=== PATIENT | male | born 1955 | race American Indian/Alaskan Native ===

== ENCOUNTER 2018-09-30 11:49 | Emergency (ER) | payer BC ==
[2018-09-30 12:00] VITALS: BP 138/76
--- NOTE | 2018-09-30 12:00 | Emergency Department Report ---
Blank Doc - Documentation Documentation: This is a 63-year-old male that presents with right elbow pain. This initial assessment/diagnostic orders/clinical plan/treatment(s) is/are subject to change based on patient's health status, clinical progression and re- assessment by fellow clinical providers in the ED. Further treatment and workup at subsequent clinical providers discretion. Patient/guardians urged not to elope from the ED as their condition may be serious if not clinically assessed and managed. Initial orders include: 1- Patient sent to [facility] for further evaluation and treatment 2- xray
--- NOTE | 2018-09-30 12:30 | XRay Report ---
RIGHT ELBOW 3 VIEWS INDICATION / CLINICAL INFORMATION: Right elbow pain without known injury. COMPARISON: None available. FINDINGS: BONES / JOINT(S): There is a large spur at the insertion of the triceps tendon on the olecranon proce ss of the ulna. There is also moderate spurring involving both distal humeral epicondyles and the cor onoid process of the ulna. There are also milder degenerative changes involving the remainder of the elbow joint. I see no evidence of fracture, dislocation, destructive lesion or joint effusion. SOFT TISSUES: No significant abnormality. ADDITIONAL FINDINGS: None. IMPRESSION: Degenerative changes without acute abnormality. Signer Name: Bright Starks MD Signed: 09/30/2018 12:25 PM Workstation Name: [id number]
[2018-09-30] MEDS ORDERED: IBUPROFEN PO ONE (13:29)
[2018-09-30] MEDS ORDERED: DELTASONE PO ONE (13:29)
--- NOTE | 2018-09-30 13:52 | Emergency Department Report ---
Upper Extremity - [facility] Chief Complaint: Extremity Problem,Nontraumatic Stated Complaint: RT ARM PAIN Time Seen by Provider: 09/30/18 11:59 Upper Extremity: Right Elbow Occurred When: >5 Days Severity: moderate Symptoms: Yes Pain with Movement, No Deformity, No Limited Range of Movement, No Numbness, No Weakness, No Swelling, No Bruising/Ecchymosis, No Laceration or Abrasion Other History: 63-year-old male comes in for right elbow pain and upper arm pain. 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 ED Review of Systems ROS: Stated complaint: RT ARM PAIN Other details as noted in HPI ED Past Medical Hx - Social History Smoking Status: Current Every Day Smoker Substance Use Type: Alcohol - Medications Home Medications: Home Medications Medication Instructions Recorded Confirmed Last Taken Type Ibuprofen [Motrin 800 MG tab] 800 mg PO Q8HR PRN #30 tablet 09/30/18 Unknown Rx Upper Extremity Exam - Exam General: Vital signs noted. No distress. Alert and acting appropriately. Head and Torso: No HEENT Abnormality, No Neck Tenderness, No Chest/Lungs Abnormality, No Abdominal Tenderness, No Back Tenderness Shoulder Exam: Yes Normal Range of Motion in Shoulder, No Shoulder Tenderness, No Clavicle Tenderness, No Shoulder Deformity, No AC Joint Tenderness Arm Exam: No Arm/Humerus Tenderness, No Arm Deformity Elbow: No Elbow Tenderness, No Normal Range of Motion in Elbow, No Elbow Deformity Forearm: No Forearm Tenderness, No Forearm Deformity, No Pain with Pronation, No Pain with Supination Wrist: Yes Normal ROM in Wrist, No Wrist Tenderness, No Wrist Deformity, No Snuffbox Tenderness, No Pain with Axial Thumb Compression Hand: Yes Normal ROM in Digit(s), No Hand Tenderness, No Hand Deformity, No Digit Tenderness, No Digit(s) Deformity, No Tendon Dysfunction CMS Exam: No Broken Skin, No Normal Distal Pulses, No Normal Capillary Refill, No Normal Distal Sensation ED Course Vital Signs 09/30/18 11:59 Temperature 97.8 F Pulse Rate 61 Respiratory 20 Rate Blood Pressure 138/76 O2 Sat by Pulse 96 Oximetry ED Medical Decision Making - Radiology Data Radiology results: report reviewed Patient: ISRAEL COPE MR#: [id number] : 1955 Acct:[id number] Age/Sex: 63 / M ADM Date: 09/30/18 Loc: ED Attending Dr: Ordering Physician: VICKY SANTOS NP Date of Service: 09/30/18 Procedure(s): XR elbow 3+V RT Accession Number(s): [id number] cc: VICKY SANTOS NP Fluoro Time In Minutes: RIGHT ELBOW 3 VIEWS INDICATION / CLINICAL INFORMATION: Right elbow pain without known injury. COMPARISON: None available. FINDINGS: BONES / JOINT(S): There is a large spur at the insertion of the triceps tendon on the olecranon process of the ulna. There is also moderate spurring involving both distal humeral epicondyles and the coronoid process of the ulna. There are also milder degenerative changes involving the remainder of the elbow joint. I see no evidence of fracture, dislocation, destructive lesion or joint effusion. SOFT TISSUES: No significant abnormality. ADDITIONAL FINDINGS: None. IMPRESSION: Degenerative changes without acute abnormality. Signer Name: Bright Starks MD Signed: 09/30/2018 12:25 PM Workstation Name: [id number] Transcribed By: RT Dictated By: Bright Starks MD Electronically Authenticated By: Bright Starks MD Signed Date/Time: 09/30/18 1225 DD/ 1224 TD/TT: Critical care attestation.: If time is entered above; I have spent that time in minutes in the direct care of this critically ill patient, excluding procedure time. ED Disposition Clinical Impression: Right elbow tendinitis Disposition: DC-01 TO HOME OR SELFCARE Is pt being admited?: No Does the pt Need Aspirin: No Condition: Stable Instructions: Tennis Elbow (ED) Additional Instructions: Days take medication as prescribed. He came to the tendinitis elbow brace from [facility]. I have given you a pitcher of the printout. Prescriptions: Ibuprofen [Motrin 800 MG tab] 800 mg PO Q8HR PRN #30 tablet PRN Reason: Pain , Severe (7-10) Referrals: BLANCO LINDA MD [Primary Care Provider] - 3-5 Days Forms: Work/School Release Form(ED)
== END 2018-09-30 14:04 | disposition home or self-care (01) ==
LOC: ED 11:49
DX: M77.9 Enthesopathy, unspecified (principal); F17.200 Nicotine dependence, unspecified, uncomplicated; Z79.899 Other long term (current) drug therapy
CPT/HCPCS: 73080; 99283; J7512